=== PATIENT | male | born 1955 ===

== ENCOUNTER 2022-10-20 13:53 | Outpatient (REF) | payer OTHER, SELFPAY ==
[2022-10-20 15:58] LABS: Influenza A PCR NEGATIVE (Negative); Influenza B PCR NEGATIVE (Negative); Resp Syncy Virus RNA Qual PCR NEGATIVE (Negative); SARS COV2 PCR INHOUSE POSITIVE (Negative)
== END 2022-10-20 13:54 | disposition home or self-care (01) ==
LOC: HO.LNP 13:53
PROVIDERS: Visit Provider Internal Medicine
DX: Z20.822 Contact with and (suspected) exposure to COVID-19 (principal); R09.89 Other specified symptoms and signs involving the circulatory and respiratory systems
CPT/HCPCS: 0241U

== ENCOUNTER 2024-06-08 10:40 | Outpatient (AMB) | payer OTHER, SELFPAY ==
--- NOTE | 2024-06-08 10:53 | AM.OFFWIN_ITS ---
Intake Vital Signs 06/08/24 10:55 Height 6 ft Weight 177 lb BMI 24.0 BP 144/72 H Blood Pressure Location Rt brachial Position Sitting Pulse 67 Pulse Source Pulse Oximeter Temp 98.2 F Temp Source Oral Pulse Oximetry (%) 97 Oxygen Delivery Method Room Air Intake Visit Reasons: EP Headache, fever/?Strep does have inner ear inf Intake Note: Pt is here today c/o H/A, fever/?strep ?COVID : pt is currently taking amoxicillin 875mg 10 more days left on the abx for his inner ear infection Allergies No Known Allergies Allergy (Verified 06/08/24 10:54) HPI EP Headache, fever/?Strep does have inner ear inf HPI Details Patient is a 68-year-old male history of seizure disorder who comes to the walk-in clinic complaining of persistent pain to the right ear despite being on a course of amoxicillin for the last 3 days. He reports that he has a history of an infection to the ear which had cleared, however the fluid had not drained and he has had a chronic serous otitis. He saw Ear Nose Throat for this recently and was put on a course of amoxicillin when symptoms started to flare up again. He reports that he also has persistent fever, body aches, myalgias and ear pain as well as sore throat now. He has not done a recent COVID test yet. He sees a primary care in [place], but is in this area helping to take care of his sister. He reports that he plans to follow up with his PCP in a few days. Review of Systems Const All systems reviewed & are unremarkable except as noted in HPI and below Physical Exam Vital Signs: Last Vital Signs Temp 98.2 F 06/08/24 10:55 Pulse 67 06/08/24 10:55 BP 144/72 H 06/08/24 10:55 Pulse Ox 97 06/08/24 10:55 Oxygen Delivery Method Room Air 06/08/24 10:55 BMI result Body Mass Index 24.0 Const General: cooperative, healthy appearing, comfortable, no acute distress, alert, awake, Physically active and well groomed; No anxious, diaphoretic, intoxicated appearing, poor hygiene or tired appearing Nutritional Appearance: average body habitus Orientation/consciousness: oriented to person Limitations: no limitations HEENT Head: Yes normal to inspection, Yes normocephalic and Yes atraumatic Ears: hearing grossly normal bilaterally, external ears normal, EAC's normal and TM abnormal bulging (Injected), erythematous and with fluid behind the TM; not perforated General nose exam: Normal external nose present, Normal septum present and Abnormal mucous membranes and turbinates present Face and sinus: Yes normal facial exam, Yes sinuses nontender and Yes face symmetric Mouth: Normal oral and palatal mucosa present, lip normal and tongue normal Throat: Yes abnormal tonsil (mildly erythematous bilaterally), No peritonsillar mass, No postnasal drainage, No uvular edema and No cobblestoning Eyes General: appearance normal, both eyes and all related structures Neck Neck: Yes normal visual inspection, Yes full ROM, Yes no lymphadenopathy, Yes trachea midline, Yes supple and No anterior neck swelling Resp Effort & Inspection: normal respiratory effort, able to speak in complete sentences, no audible wheezes, no cough, no grunting, not labored, no nasal flaring, no retractions and symmetric chest movement Auscultation: clear to auscultation bilaterally, no crackles, no rales, no rhonchi, no wheezes, lung sounds not diminished and No rub present Cardio Rate: regular rate Rhythm: regular rhythm Skin Other: Good color, warm and dry Neuro General: oriented to person Psych Appearance: grossly normal Mental Status: mental status grossly normal Speech and movement: Normal speech and movement present Affect: normal affect Attitude: cooperative Thought process: Normal thought process present Insight: Good insight present (Psych) Judgement: Good judgement present (Psych) Results AMB Rapid Strep AMB Rapid Strep Negative Last Edit by Evita Hutson CMA on 06/08/24 11:16 Results Reviewed Results Reviewed: Laboratory Last Values Strep Scn Rapid Clinic Negative 06/08/24 11:03 Assessment & Plan Assessment & Plan (1) Otitis media: Code(s): H66.90 - Otitis media, unspecified, unspecified ear Qualifiers: Otitis media type: suppurative Chronicity: acute Laterality: right Recurrence: recurrent Spontaneous tympanic membrane rupture: without spontaneous rupture Qualified Code(s): H66.004 - Acute suppurative otitis media without spontaneous rupture of ear drum, recurrent, right ear Plan Patient is a 68-year-old male history of seizure disorder who comes to the walk- in clinic complaining of persistent pain to the right ear despite being on a course of amoxicillin for the last 3 days. He reports that he has a history of an infection to the ear which had cleared, however the fluid had not drained and he has had a chronic serous otitis. He saw Ear Nose Throat for this recently and was put on a course of amoxicillin when symptoms started to flare up again, and was diagnosed with recurrent otitis media. He reports that he also has persistent fever, body aches, myalgias and ear pain as well as sore throat now. He has not done a recent COVID test, and rapid COVID as well as PCR to rule out flu COVID and RSV was done today and is pending. I told him in the meantime to stop the amoxicillin and wrote him for a course of Augmentin, as his ears are still erythematous and bulging 3 days into antibiotic. There is no perforation or fluid drainage. He plans to follow up with his PCP in a few days, and knows to go to the emergency department with worrisome symptoms. Orders: Orders [facility] Covid-19 Ag 06/08/24 Z20.822 - Contact with and (suspected) exposure to COVID-19 AMB Rapid Strep Screen 06/08/24 Z13.9 - Encounter for screening, unspecified SARS-CoV2/FLU/RSV 06/08/24 J06.9 - Acute upper respiratory infection, unspecified Medications: New amoxicillin-pot clavulanate 875-125 mg 1 tab PO BID 14 tabs 0RF Coding Level of Care Code Est Pt Level 4 (01508) Diagnoses Recurrent acute suppurative otitis media of right ear without spontaneous rupture of tympanic membrane H66.004 Otitis media type: suppurative Chronicity: acute Laterality: right Recurrence: recurrent Spontaneous tympanic membrane rupture: without spontaneous rupture
[2024-06-08 10:55] VITALS: BP 144/72; PULSE 67; TEMP 36.8; O2SAT 97; BMI 24.0
== END 2024-06-08 12:31 | disposition home or self-care (01) ==
PROVIDERS: Visit Provider Physician Assistant Medical
DX: J06.9 Acute upper respiratory infection, unspecified (principal); Z20.822 Contact with and (suspected) exposure to COVID-19
CPT/HCPCS: 87880; 99214

== ENCOUNTER 2024-06-08 12:17 | Outpatient (REF) | payer OTHER, SELFPAY ==
[2024-06-08 12:29] LABS: Binax Internal Control QC Valid; Binax Now Covid-19 Ag Positive (Negative)
== END 2024-06-08 12:18 | disposition home or self-care (01) ==
LOC: HO.HMGCLDS 12:17
PROVIDERS: Visit Provider Physician Assistant Medical
DX: Z20.822 Contact with and (suspected) exposure to COVID-19 (principal)
CPT/HCPCS: 87811

== ENCOUNTER 2024-06-08 12:19 | Outpatient (REF) | payer OTHER, SELFPAY ==
[2024-06-08 14:10] LABS: Influenza A PCR NEGATIVE (Negative); Influenza B PCR NEGATIVE (Negative); Resp Syncy Virus RNA Qual PCR NEGATIVE (Negative); SARS COV2 PCR INHOUSE POSITIVE (Negative)
== END 2024-06-08 12:20 | disposition home or self-care (01) ==
LOC: HO.LAB 12:19
PROVIDERS: Visit Provider Physician Assistant Medical
DX: J06.9 Acute upper respiratory infection, unspecified (principal)
CPT/HCPCS: 0241U

== ENCOUNTER 2024-09-11 13:40 | Outpatient (AMB) | payer OTHER, SELFPAY ==
--- NOTE | 2024-09-11 14:29 | MHC.OFFWIV ---
Intake Vital Signs 09/11/24 14:30 Height 6 ft Weight 179 lb BMI 24.3 BP 120/90 H Blood Pressure Location Rt brachial Position Sitting Pulse 62 Pulse Source Pulse Oximeter Pulse Oximetry (%) 98 Oxygen Delivery Method Room Air Intake Visit Reasons: EP ? ear infection Intake Note: Patient here for right ear infection. Patient Tobacco Use Status: Never used Tobacco Allergies No Known Allergies Allergy (Verified 09/11/24 14:31) Do you need a note to return to daycare/school/sports/work: No HPI HPI Comments History of Present Illness Details Patient is a 69-year-old male complaining of 3 days of right ear pain. He tells me he has already had 2 ear infections this year and they use amoxicillin the 1st time but he needed Augmentin to actually treat the infection properly the second time. He denies any change in his hearing, cough congestion or other upper respiratory symptoms. He has not taken antibiotics since March. [facility] Social History Patient Tobacco Use Status: Never used Tobacco Review of Systems Const All systems reviewed & are unremarkable except as noted in HPI and below Physical Exam Vital Signs: Last Vital Signs Pulse 62 09/11/24 14:30 BP 120/90 H 09/11/24 14:30 Pulse Ox 98 09/11/24 14:30 Oxygen Delivery Method Room Air 09/11/24 14:30 BMI result Body Mass Index 24.3 Const General: cooperative, healthy appearing, comfortable and no acute distress Orientation/consciousness: patient oriented x3 HEENT Head: Yes normal to inspection, Yes No palpable skull fracture present and Yes normocephalic Ears: hearing grossly normal bilaterally, external ears normal, TM normal on the left, EAC's normal, mastoids normal (no TTP) bilaterally and TM abnormal (right) wth effusion and with loss of landmarks General nose exam: Normal external nose present Face and sinus: Yes normal facial exam Mouth: Normal oral and palatal mucosa present Teeth and gingiva: dentition normal Throat: Yes posterior oropharynx normal Eyes General: appearance normal, both eyes and all related structures Neck Neck: Yes normal visual inspection, Yes full ROM, Yes no lymphadenopathy, Yes no meningeal signs, Yes trachea midline and Yes supple Resp Effort & Inspection: normal respiratory effort and able to speak in complete sentences Skin General skin exam: no rashes or lesions noted Neuro General: patient oriented x3 and no meningeal signs Assessment & Plan Assessment & Plan (1) Otitis media of right ear: Code(s): H66.91 - Otitis media, unspecified, right ear Qualifiers: Otitis media type: suppurative Chronicity: acute Recurrence: non-recurrent Spontaneous tympanic membrane rupture: without spontaneous rupture Qualified Code(s): H66.001 - Acute suppurative otitis media without spontaneous rupture of ear drum, right ear Plan: As patient required Augmentin to clear up his ear infection last time, we will treat with Augmentin this time. Plan See above Medications: New amoxicillin-pot clavulanate 875-125 mg 1 tab PO Q12H 10 tabs 0RF Discontinued amoxicillin-pot clavulanate 875-125 mg Discontinued Reason: Duplicate 1 tab PO BID 14 tabs 0RF Coding Level of Care Code New Pt Level 3 (43051) Diagnoses Non-recurrent acute suppurative otitis media of right ear without spontaneous rupture of tympanic membrane H66.001 Otitis media type: suppurative Chronicity: acute Recurrence: non-recurrent Spontaneous tympanic membrane rupture: without spontaneous rupture
[2024-09-11 14:30] VITALS: BP 120/90; PULSE 62; O2SAT 98; BMI 24.3
== END 2024-09-11 15:10 | disposition home or self-care (01) ==
PROVIDERS: Visit Provider Physician Assistant
DX: H66.001 Acute suppurative otitis media without spontaneous rupture of ear drum, right ear (principal)

== ENCOUNTER → 2024-09-11 13:40 | Outpatient (BNVA) | payer OTHER, SELFPAY | PROVIDERS: Visit Provider Physician Assistant ==

== ENCOUNTER 2025-01-24 13:36 | Outpatient (AMB) | payer OTHER, SELFPAY ==
--- NOTE | 2025-01-24 13:53 | MHC.OFFWIV ---
Intake Vital Signs 01/24/25 13:56 Weight 179 lb BP 130/80 Blood Pressure Location Rt brachial Position Sitting Pulse 72 Pulse Source Pulse Oximeter Pulse Oximetry (%) 98 Oxygen Delivery Method Room Air Intake Visit Reasons: EP RT ear ?infection Intake Note: Patient here for right ear infection,loss of hearing that has been present for a couple of days now but has been treated over the past year or so a couplw of times now. Patient Tobacco Use Status: Never used Tobacco Allergies No Known Allergies Allergy (Verified 01/24/25 13:57) Do you need a note to return to daycare/school/sports/work: No HPI HPI Comments History of Present Illness Details History - The patient is a 69-year-old male presenting with hearing impairment in the right ear. He thinks he has an ear infection - He has recurrent ear infections, treated previously with antibiotics like Amoxicillin and Augmentin, showing partial symptom relief. - His condition periodically resolves but frequently recurs, leading to persistent fullness and muffled hearing in the right ear. - Despite being evaluated previously with clear eustachian tubes, he experiences sharp pain and noted bleeding from the ear during sleep on one occasion. - He has used Flonase with intermittent results and denies any fever accompanying his symptoms. - The patient has an upcoming ENT consultation in [place] in June to investigate chronic ear issues further. Physical Exam General: Cooperative, healthy appearing, comfortable and no acute distress Orientation/consciousness: Patient oriented x3 Limitations: No limitations Head: Normal to inspection Ears: Hearing muffled in the right ear, external ears normal and TM right with purulent effusion and loss of landmarks and bulging Nose: Normal external nose present, Normal nares present and No nasal discharge present Face and sinus: Normal facial exam Eyes: Appearance normal, both eyes and all related structures Neck: Normal visual inspection Respiratory: Normal respiratory effort, able to speak in complete sentences, no respiratory distress, not tachypneic, no tripod positioning and no use of accessory muscles Skin: No rashes or lesions noted Neuro: Patient oriented x3 Extremities: Normal to inspection and Yes no clubbing, cyanosis or edema [facility] Social History Patient Tobacco Use Status: Never used Tobacco Review of Systems Const All systems reviewed & are unremarkable except as noted in HPI and below Physical Exam Vital Signs: Last Vital Signs Pulse 72 01/24/25 13:56 BP 130/80 01/24/25 13:56 Pulse Ox 98 01/24/25 13:56 Oxygen Delivery Method Room Air 01/24/25 13:56 Assessment & Plan Assessment & Plan (1) Otitis media of right ear: Code(s): H66.91 - Otitis media, unspecified, right ear Qualifiers: Otitis media type: suppurative Chronicity: acute Recurrence: non-recurrent Spontaneous tympanic membrane rupture: without spontaneous rupture Qualified Code(s): H66.001 - Acute suppurative otitis media without spontaneous rupture of ear drum, right ear Plan: The patient is advised to complete a 7-day course of Augmentin, with specific instructions on Flonase use to target eustachian tube dysfunction. Given the recurrent nature of his otitis media and the resulting hearing impairment, a follow-up with an ENT specialist is scheduled to explore further management options and assess the potential need for interventions such as ear tubes. There are considerations for adding Benadryl at night to assist with drying symptoms. The treatment plan aims to ameliorate acute symptoms and address the underlying issues with ongoing evaluation. Patient was informed and verbally consented to the use of an ambient scribe for clinic note documentation during this visit Medications: New amoxicillin-pot clavulanate 875-125 mg 1 tab PO Q12H 14 tabs 0RF Coding Level of Care Code New Pt Level 3 (88362) Diagnoses Non-recurrent acute suppurative otitis media of right ear without spontaneous rupture of tympanic membrane H66.001 Otitis media type: suppurative Chronicity: acute Recurrence: non-recurrent Spontaneous tympanic membrane rupture: without spontaneous rupture
[2025-01-24 13:56] VITALS: BP 130/80; PULSE 72; O2SAT 98
== END 2025-01-24 14:42 | disposition home or self-care (01) ==
PROVIDERS: Visit Provider Physician Assistant
DX: H66.001 Acute suppurative otitis media without spontaneous rupture of ear drum, right ear (principal)